=== PATIENT | male | born 1945 | race Caucasian/White ===

== ENCOUNTER 2018-06-18 06:58 | Day surgery (SDC) | payer OTHER, SELFPAY ==
[2018-06-18] MEDS: PROPARACAINE 0.5% OPHTH SOL 2 DROPS EYE-OP (07:37)
[2018-06-18] MEDS: CATARACT EYE COMPOUND (10 DROPS/SYRINGE) 3 DROPS EYE-OP (07:42)
[2018-06-18 07:43] VITALS: BP 123/76; PULSE 91; RESP 16; TEMP 36.6; O2SAT 97; BMI 29.4
--- NOTE | 2018-06-18 08:48 | P.OP.PRE_ITS ---
Pre-operative Note Interval Note Changes: No
--- NOTE | 2018-06-18 08:48 | P.OP_ITS ---
Operative Date/Time/Diagnoses Pre-op diagnosis: Cataract Left eye Post-op diagnosis: same Procedure & Clinicians Surgeon: Jeferson Barber Anesthesia Type: MAC +/- and Sedation Operative Notes Procedure in detail: Patient brought to the operating suite. Tetracaine drops placed in the left eye. Patient was prepped and draped in sterile manner. Wire lid speculum was placed in the eye. Betadine drops were placed on the eye. This was irrigated. Lidocaine jelly was placed on the eye. A paracentesis port was created with a side-port blade. 0.1 mL 1% preservative free lidocaine was injected into the anterior chamber. The anterior chamber was deepened with viscoelastic. 2.6 mm keratome was used to create a temporal clear corneal incision. Cystotome and Utrata forceps were used to create continuous tear capsulorrhexis. Balanced salt solution was used to hydro dissect the nucleus. The phacoemulsification handpiece was inserted and the nucleus was removed using the stop and chop technique. The irrigation aspiration handpiece was inserted and the remaining cortex was removed. Anterior chamber was deepened with viscoelastic. An Flores [id number] intraocular lens with a power of 19.0 was injected into the capsular bag. Irrigation aspiration handpiece was inserted and the remaining viscoelastic was removed. Incision was hydrated with balanced salt solution and found to be leak free with pressure with Weck- Pamela sponges. 0.1 mL Vigamox injected anterior chamber. 0.3 mL Kenalog 10 mg was injected subconjunctivally. Lid speculum was removed. The patient left the operating room in excellent condition. Complications: none Condition: stable Disposition: same day surgery
--- NOTE | 2018-06-18 08:48 | PM.PREOP ---
Pre-operative Note Interval Note Changes: No
--- NOTE | 2018-06-18 08:58 | SUR.OPER ---
Supine on eye stretcher, head on extension cradle secured with tape. Arms tucked at sides with blanket. Pillow under knees.
[2018-06-18] MEDS: MOXIFLOXACIN OPHTH DROPS 3 ML BOTTLE 2 DROPS INJ (09:03)
[2018-06-18] MEDS: PHENYLEPHRINE/LIDOCAINE VIAL (OR) 0.2 ML EYE-OP (09:03)
[2018-06-18] MEDS: TRIAMCINOLONE 50 MG/5 ML VIAL INJ (09:03)
[2018-06-18] MEDS: CHONDROIDTIN/SOD HYALURONATE 1.05 ML SYRINGE INTRAOCULA (09:04)
[2018-06-18] MEDS: LIDOCAINE JELLY 2% 5 ML 1 APPLIC TOP (09:05)
[2018-06-18] MEDS: BALANCED SALT IRRIG SOLN NO.2 500 ML, EPINEPHrine 1 MG IRR (09:06)
[2018-06-18] MEDS: TETRACAINE 0.5% OPHTH DROPS 15 ML 2 DROPS EYE-LEFT (09:06)
[2018-06-18 09:18] VITALS: BP 90/60; PULSE 74; RESP 15; TEMP 36.3; O2SAT 98
[2018-06-18 09:25] VITALS: BP 100/64; PULSE 61; RESP 18; O2SAT 98
--- NOTE | 2018-06-18 09:40 | SUR.PHASEII ---
pt awake and alert. answers questions appropriately. denies any complaints. Pt able to stand and dress without difficulty. at bedside.
== END 2018-06-18 09:36 ==
LOC: OR 07:00
PROVIDERS: PCP Family Medicine; Visit Provider Ophthalmology
DX: H25.12 Age-related nuclear cataract, left eye (principal); I10 Essential (primary) hypertension
CPT/HCPCS: J0171; J2250; J3010; J3301

== ENCOUNTER → 2019-01-06 15:50 | Outpatient (REF) | payer OTHER, SELFPAY ==
[2019-01-06 16:12] LABS: INR 2.4 (0.9-1.3); Prothrombin Time 27.8 SECONDS (10.1-12.7)
== END ==
LOC: LAB 15:50
PROVIDERS: PCP Family Medicine; Visit Provider Family Medicine
DX: I48.91 Unspecified atrial fibrillation (principal)
CPT/HCPCS: 85610

== ENCOUNTER → 2019-02-25 14:07 | Outpatient (ROUT) | payer OTHER, SELFPAY ==
[2019-02-25 14:18] LABS: INR 1.6 (0.9-1.3); Prothrombin Time 18.3 SECONDS (10.1-12.7)
== END ==
PROVIDERS: PCP Family Medicine; Visit Provider Family Medicine
DX: I48.91 Unspecified atrial fibrillation (principal)
CPT/HCPCS: 85610

== ENCOUNTER → 2019-03-11 12:08 | Outpatient (ROUT) | payer OTHER, SELFPAY ==
[2019-03-11 12:17] LABS: INR 1.8 (0.9-1.3); Prothrombin Time 20.9 SECONDS (10.1-12.7)
== END ==
PROVIDERS: PCP Family Medicine; Visit Provider Family Medicine
DX: I48.91 Unspecified atrial fibrillation (principal)
CPT/HCPCS: 85610

== ENCOUNTER 2019-03-18 11:51 | Day surgery (SDC) | payer OTHER, SELFPAY ==
[2019-03-18] VITALS (8 sets, daily range): BP systolic 92–121; BP diastolic 60–70; PULSE 75–88; RESP 15–20; TEMP 36.7–36.9; O2SAT 96–100; BMI 30.2
--- NOTE | 2019-03-18 | PATH_ITS ---
[facility] Accession Number: [id number] . 01 Material submitted: . PART A: rectum - RECTAL POLYP PART B: rectum - DISTAL RECTAL OCLON POLYPS . 01 Clinical history: . A: SMALL SESSILE . 02 Diagnosis: A. Rectum, Polyp: Hyperplastic polyp. . B. Distal Rectum, Polyps: Fragments of tubular adenoma and fragment of hyperplastic polyp. MRV/03/19/2019 . 02 Electronically signed: . Donavan Haro MD, PhD, Pathologist NPI- [id number] . 01 Gross description: . Part A: RECTAL POLYP: Received in formalin is 1 fragment(s) of merino, soft tissue measuring 0.2 x 0.2 x 0.2 cm which is entirely submitted and submitted entirely in 1 cassette(s) Part B: DISTAL RECTAL OCLON POLYPS: Received in formalin are multiple fragment(s) of merino, soft tissue measuring 0.1 x 0.1 x 0.1 cm to 0.6 x 0.5 x 0.4 cm which is entirely submitted and submitted entirely in 1 cassette(s) /DMC /DMC . 02 Pathologist provided ICD-10: D12.8, K62.1 . 02 CPT . 201786, [id number] Performed at: 01 [facility] [address], [place], [place] [id number] MD Shaun Gurrola MD Phone: [phone] Performed at: 02 [facility] [place] [address] [place], [place] [id number] MD Kate Beltran MD Phone: [phone]
[2019-03-18] MEDS: SODIUM CHLORIDE 0.9% 1,000 ML 200 ML IV (12:23)
--- NOTE | 2019-03-18 13:12 | PM.HP.1 ---
History of Present Illness Date Patient Seen: 03/18/19 Time Patient Seen: 13:00 Chief complaint: [id number] Narrative: 73-year-old man presents for screening colonoscopy. Fifteen years since last colonoscopy. On that no polyps identified. No family history of colon or rectal cancer. No family history of colon polyps. No family history of inflammatory bowel disease. Patient tolerated his prep well No abdominal symptoms Patient History Medical History (Updated 03/18/19 @ 12:18 by Jane Lui RN) Afib (Acute) Arthritis (Acute) Closed hip fracture requiring operative repair (Acute ~1988) Elevated cholesterol (Acute) Factor V deficiency, congenital (Acute) Femur fracture, left (Acute ~1969) History of DVT (deep vein thrombosis) (Acute) History of headache (Acute) History of pulmonary embolism (Acute) Hypertension (Acute) Surgical History (Updated 03/18/19 @ 12:17 by Jane Lui RN) Cataract extraction status of left eye (Acute ~06/18/18) H/O ankle fusion (Acute ~2001) H/O right knee surgery (Acute) History of colonoscopy (Acute) Social History household members: spouse Family & Social History Social History: household members spouse Meds Home Medications Medication Instructions Recorded Confirmed Type atorvastatin [Lipitor] 20 mg PO HS #0 11/27/17 03/18/19 History lisinopril-hydrochlorothiazide 1 tab PO QDAY #0 11/27/17 03/18/19 History warfarin [Coumadin] 7.5 mg PO QDAY #0 11/27/17 03/18/19 History metoprolol succinate 50 mg PO DAILY 06/18/18 03/18/19 History Allergies Allergy/AdvReac Type Severity Reaction Status Date / Time naproxen [NAPROXEN] Allergy Mild Swelling, Verified 03/18/19 12:12 Hives Review of Systems Constitutional Constitutional: Denies fever(s) Eyes Eyes: Denies bulging eyes ENT Ears, Nose, Mouth, and Throat: No lip swelling Cardiovascular Cardiovascular: Denies generalize swelling Respiratory Respiratory: Denies stridor Gastrointestinal Gastrointestinal: Denies coffee ground emesis Musculoskeletal Musculoskeletal: Denies loss of height Integumentary/Breasts Skin/Breast: Denies wounds Neurologic Neurologic: Denies abnormal speech and Denies confusion Psychiatric Psychiatric: Denies confusion Endocrine Endocrine: Denies deepening of the voice Hematologic/Lymphatic Hematologic/Lymphatic: Denies lymphadenopathy Allergic/Immunologic Allergic/Immunologic: Denies lip swelling Exam Const General: cooperative and healthy appearing Orientation: alert HENMT Head: normal to inspection Nose: nares normal Mouth: oral mucosae normal and lip normal Eyes Eyelids: eyelids normal Conjunctivae: conjunctivae normal Sclera: sclerae normal Neck Neck: supple and other (No thyromegally) Chest Chest: other (LCTAB , regular respiratory effort) Cardio Rhythm: regular rhythm Heart Sounds: S1 normal, S2 normal, no gallops, no murmurs and no rubs GI Other: Abdomen soft nontender nondistended Skin General: no rashes or lesions noted Neuro General: alert and awake Psych Appearance: grossly normal Affect: normal affect Assessment & Plan Assessment & Plan narrative: 73-year-old man overdue for his regular screening colonoscopy Not at elevated risk of colorectal cancer Was on warfarin anticoagulation -now. With INR 1.3 Plan for screening colonoscopy with possible polypectomy Risks of procedure including , perforation, hypoxia, missed lesion all discussed Patient rated proceed all questions answered
--- NOTE | 2019-03-18 13:15 | P.HP_ITS ---
History of Present Illness Date Patient Seen: 03/18/19 Time Patient Seen: 13:00 Chief complaint: [id number] Narrative: 73-year-old man presents for screening colonoscopy. Fifteen years since last colonoscopy. On that no polyps identified. No family history of colon or rectal cancer. No family history of colon polyps. No family history of inflammatory bowel disease. Patient tolerated his prep well No abdominal symptoms Patient History Medical History (Updated 03/18/19 @ 12:18 by Jane Lui RN) Afib (Acute) Arthritis (Acute) Closed hip fracture requiring operative repair (Acute ~1988) Elevated cholesterol (Acute) Factor V deficiency, congenital (Acute) Femur fracture, left (Acute ~1969) History of DVT (deep vein thrombosis) (Acute) History of headache (Acute) History of pulmonary embolism (Acute) Hypertension (Acute) Surgical History (Updated 03/18/19 @ 12:17 by Jane Lui RN) Cataract extraction status of left eye (Acute ~06/18/18) H/O ankle fusion (Acute ~2001) H/O right knee surgery (Acute) History of colonoscopy (Acute) Social History household members: spouse Family & Social History Social History: household members spouse Meds Home Medications Medication Instructions Recorded Confirmed Type atorvastatin [Lipitor] 20 mg PO HS #0 11/27/17 03/18/19 History lisinopril-hydrochlorothiazide 1 tab PO QDAY #0 11/27/17 03/18/19 History warfarin [Coumadin] 7.5 mg PO QDAY #0 11/27/17 03/18/19 History metoprolol succinate 50 mg PO DAILY 06/18/18 03/18/19 History Allergies Allergy/AdvReac Type Severity Reaction Status Date / Time naproxen [NAPROXEN] Allergy Mild Swelling, Verified 03/18/19 12:12 Hives Review of Systems Constitutional Constitutional: Denies fever(s) Eyes Eyes: Denies bulging eyes ENT Ears, Nose, Mouth, and Throat: No lip swelling Cardiovascular Cardiovascular: Denies generalize swelling Respiratory Respiratory: Denies stridor Gastrointestinal Gastrointestinal: Denies coffee ground emesis Musculoskeletal Musculoskeletal: Denies loss of height Integumentary/Breasts Skin/Breast: Denies wounds Neurologic Neurologic: Denies abnormal speech and Denies confusion Psychiatric Psychiatric: Denies confusion Endocrine Endocrine: Denies deepening of the voice Hematologic/Lymphatic Hematologic/Lymphatic: Denies lymphadenopathy Allergic/Immunologic Allergic/Immunologic: Denies lip swelling Exam Const General: cooperative and healthy appearing Orientation: alert HENNY Head: normal to inspection Nose: nares normal Mouth: oral mucosae normal and lip normal Eyes Eyelids: eyelids normal Conjunctivae: conjunctivae normal Sclera: sclerae normal Neck Neck: supple and other (No thyromegally) Chest Chest: other (LCTAB , regular respiratory effort) Cardio Rhythm: regular rhythm Heart Sounds: S1 normal, S2 normal, no gallops, no murmurs and no rubs GI Other: Abdomen soft nontender nondistended Skin General: no rashes or lesions noted Neuro General: alert and awake Psych Appearance: grossly normal Affect: normal affect Assessment & Plan Assessment & Plan narrative: 73-year-old man overdue for his regular screening c olonoscopy Not at elevated risk of colorectal cancer Was on warfarin anticoagulation -now. With INR 1.3 Plan for screening colonoscopy with possible polypectomy Risks of procedure including , perforation, hypoxia, missed lesion all discussed Patient rated proceed all questions answered
[2019-03-18] MEDS: MIDAZOLAM 5 MG/5 ML VIAL IV (13:43)
[2019-03-18] MEDS: fentaNYL 250 MCG/5 ML INJ IV (13:44)
--- NOTE | 2019-03-18 14:15 | PM.OP.ENDO ---
Operative Date/Time/Diagnoses Date of procedure: 03/18/19 Time of procedure: 14:15 Pre-op diagnosis: screening colonoscopy Post-op diagnosis: other Procedure & Clinicians Study performed: Complete screening colonoscopy Cold biopsy polypectomy x2 Hot snare polypectomy x1 Same procedure as scheduled: Yes Indications: 73-year-old man 15 years out from his most recent screening colonoscopy overdue for endoscopy. No family history of colon or rectal cancers, no personal family history of colon polyps Surgeon: Juan C Meyers Procedure Notes SCOAP/Timeout: Completed Procedure in detail: The patient was brought to the endoscopy suite, time-out was completed he was sedated over the course his procedure with a total of 5 mg of midazolam and 100 micro g of fentanyl. A digital rectal exam was performed which was without masses. 160 cm endoscope was introduced into the anus advanced through the folds of the rectum and negotiated through the twist and turns of the colon until the cecum was reached. Cecum was readily identified with a prominent ileocecal valve, gross foot as well as low appendiceal orifice. The colonoscopy scope was then slowly withdrawn visualizing the mucosal surfaces. Several areas of retained liquid were suctioned dry two view to visualize the mucosal wall well. While withdrawing the scope extensive diverticulosis involving the transverse left and sigmoid colon was identified. The sigmoid colon in particular had severe diverticula within diverticular changes. In addition a total of 3 rectal polyps were identified-there is a small sessile polyp near the rectosigmoid junction this was removed with a biopsy forcep. There were 2 distal rectal colon polyps within 4 cm of the dentate line. One was small sessile removed with biopsy forceps. The other was large and pedunculated which required a heart snare to rule. All were sent to pathology. The endoscope was retroflexed no additional lesions were identified Prep was adequate Patient tolerated the procedure well Scope withdrawal time: Twenty-three minutes Sedation minutes: 40 Findings: diverticulosis and polyp Specimen(s): other (1) PROXIMAL RECTAL POLPY 2) DISTAL RECTUM POLYPS X 2) Complications: none Impression: 1) Extensive diverticulosus of sigmoid, left and transverse colon 2) Rectal polyps as above 3) external hemorrhoids Recommendations: Colonscopy in 5 years Plan for aftercare: pacu and home Follow up: as needed Disposition: PACU
--- NOTE | 2019-03-18 14:39 | SUR.PHASEI ---
Post-procedure nurse note: pt was awake when entering the PACU, VSS, no pain reported, tolerating PO well, transfer to OPD
--- NOTE | 2019-03-18 15:07 | SUR.PHASEII ---
brought in, d/c instructins discussed checked with dr berg when to restart coumadin, he stated on the 20 of march, this relayed to pt and , both voiced an understanding.
== END 2019-03-18 15:10 | disposition home or self-care (01) ==
LOC: ENDO 11:55
PROVIDERS: PCP Family Medicine; Visit Provider Surgery
PROC: 0DJD8ZZ Inspection of Lower Intestinal Tract, Via Natural or Artificial Opening Endoscopic (ICD-10-PCS; CPT 45378; principal; 2019-03-18 13:00)
DX: Z12.11 Encounter for screening for malignant neoplasm of colon (principal); K57.30 Diverticulosis of large intestine without perforation or abscess without bleeding; K64.4 Residual hemorrhoidal skin tags; K62.1 Rectal polyp; D12.4 Benign neoplasm of descending colon; D12.3 Benign neoplasm of transverse colon; I10 Essential (primary) hypertension; I48.91 Unspecified atrial fibrillation
CPT/HCPCS: 45380; 99152; 99153; J2250; J3010

== ENCOUNTER → 2019-03-25 13:25 | Outpatient (ROUT) | payer OTHER, SELFPAY ==
[2019-03-25 13:43] LABS: INR 1.8 (0.9-1.3); Prothrombin Time 21.3 SECONDS (10.1-12.7)
== END ==
PROVIDERS: PCP Family Medicine; Visit Provider Family Medicine
DX: Z79.01 Long term (current) use of anticoagulants (principal)
CPT/HCPCS: 85610

== ENCOUNTER → 2019-04-08 14:04 | Outpatient (ROUT) | payer OTHER, SELFPAY ==
[2019-04-08 14:16] LABS: INR 2.3 (0.9-1.3); Prothrombin Time 26.5 SECONDS (10.1-12.7)
== END ==
PROVIDERS: PCP Family Medicine; Visit Provider Family Medicine
DX: Z79.01 Long term (current) use of anticoagulants (principal)
CPT/HCPCS: 85610

== ENCOUNTER → 2019-05-05 08:59 | Outpatient (CLI) | payer OTHER, SELFPAY ==
[2019-05-05 10:04] LABS: Add Manual Diff / Slide Review NO; Basophils Absolute Auto 0 /uL (0-100); Basophils Percent Auto 0.8 % (0-2); Eosinophils Absolute Auto 100 /uL (0-450); Eosinophils Percent Auto 1.4 % (2-4); Hematocrit 44.3 % (41-53); Hemoglobin 15.3 g/dL (13.5-17.5); Lymphocytes Absolute Auto 1400 /uL (1100-4500); Lymphocytes Percent Auto 23.5 % (25-40); Mean Corpuscular HGB Conc 34.6 % (30-36); Mean Corpuscular Hemoglobin 32.4 PG (26-34); Mean Corpuscular Volume 93.8 fL (80-100); Monocytes Absolute Auto 600 /uL (0-900); Monocytes Percent Auto 9.5 % (3-14); Neutrophils Absolute Auto 4000 /uL (1500-7000); Neutrophils Percent Auto 64.8 % (50-75); Platelet Count 165 X10^3/uL (150-400); Red Blood Cell Count 4.72 X10^6/uL (4.5-5.9); Red Cell Distribution Width 12.9 % (11.6-14.8); White Blood Cell Count 6.2 X10^3/uL (4.5-11.0)
[2019-05-05 10:21] LABS: Blood Urea Nitrogen 15 mg/dL (9-20); Calcium 9.6 mg/dL (8.4-10.2); Carbon Dioxide 28 mmol/L (22-32); Chloride 103 mmol/L (98-107); Cholesterol 144 mg/dL (140-199); Estimated Glomerular Filt Rate > 60.0 mL/min (>60); Glucose 126 mg/dL (80-110); HDL Cholesterol 53 mg/dL (40-60); HEMOLYSIS < 15 (0-50); LDL Cholesterol Calculated 63 mg/dL (<100); Potassium 4.2 mmol/L (3.4-5.1); Sodium 139 mmol/L (137-145); Triglycerides 142 mg/dL (35-150)
== END ==
PROVIDERS: PCP Family Medicine; Visit Provider Internal Medicine Cardiovascular Disease
DX: I10 Essential (primary) hypertension (principal)
CPT/HCPCS: 36415; 80048; 80061; 85025

== ENCOUNTER → 2019-07-02 07:58 | Outpatient (CLI) | payer OTHER, SELFPAY ==
[2019-07-02 08:28] LABS: INR 1.7 (0.9-1.3); Prothrombin Time 19.6 SECONDS (10.1-12.7)
== END ==
PROVIDERS: PCP Family Medicine; Visit Provider Family Medicine
DX: I48.91 Unspecified atrial fibrillation (principal)
CPT/HCPCS: 36415; 85610

== ENCOUNTER → 2019-08-26 14:24 | Outpatient (ROUT) | payer OTHER, SELFPAY ==
[2019-08-26 14:37] LABS: INR 2.2 (0.9-1.3); Prothrombin Time 26.3 SECONDS (10.1-12.7)
== END ==
PROVIDERS: PCP Family Medicine; Visit Provider Family Medicine
DX: Z79.01 Long term (current) use of anticoagulants (principal)
CPT/HCPCS: 85610

== ENCOUNTER → 2019-09-10 14:04 | Outpatient (ROUT) | payer OTHER, SELFPAY ==
[2019-09-10 14:16] LABS: INR 2.7 (0.9-1.3); Prothrombin Time 32.4 SECONDS (10.1-12.7)
== END ==
PROVIDERS: PCP Family Medicine; Visit Provider Family Medicine
DX: Z79.01 Long term (current) use of anticoagulants (principal)
CPT/HCPCS: 85610

== ENCOUNTER → 2019-10-02 10:37 | Outpatient (ROUT) | payer OTHER, SELFPAY ==
[2019-10-02 10:52] LABS: INR 2.1 (0.9-1.3); Prothrombin Time 24.8 SECONDS (10.1-12.7)
== END ==
PROVIDERS: PCP Family Medicine; Visit Provider Family Medicine
DX: Z79.01 Long term (current) use of anticoagulants (principal)
CPT/HCPCS: 85610

== ENCOUNTER → 2019-11-12 14:21 | Outpatient (ROUT) | payer OTHER, SELFPAY ==
[2019-11-12 14:39] LABS: INR 2.7 (0.9-1.3); Prothrombin Time 31.2 SECONDS (10.1-12.7)
== END ==
PROVIDERS: PCP Family Medicine; Visit Provider Family Medicine
DX: Z79.01 Long term (current) use of anticoagulants (principal)
CPT/HCPCS: 85610

== ENCOUNTER → 2019-11-28 08:43 | Outpatient (ROUT) | payer OTHER, SELFPAY ==
[2019-11-28 08:52] LABS: INR 2.2 (0.9-1.3); Prothrombin Time 24.9 SECONDS (10.1-12.7)
== END ==
PROVIDERS: PCP Family Medicine; Visit Provider Family Medicine
DX: Z79.01 Long term (current) use of anticoagulants (principal)
CPT/HCPCS: 85610

== ENCOUNTER → 2020-01-19 08:00 | Outpatient (ROUT) | payer OTHER, SELFPAY ==
[2020-01-19 08:17] LABS: INR 3.5 (0.9-1.3); Prothrombin Time 40.2 SECONDS (10.1-12.7)
== END ==
PROVIDERS: PCP Family Medicine; Visit Provider Family Medicine
DX: Z79.01 Long term (current) use of anticoagulants (principal)
CPT/HCPCS: 85610

== ENCOUNTER → 2020-02-03 12:26 | Outpatient (ROUT) | payer OTHER, SELFPAY ==
[2020-02-03 12:49] LABS: INR 2.2 (0.9-1.3); Prothrombin Time 25.5 SECONDS (10.1-12.7)
== END ==
PROVIDERS: PCP Family Medicine; Visit Provider Family Medicine
DX: Z79.01 Long term (current) use of anticoagulants (principal)
CPT/HCPCS: 85610

== ENCOUNTER → 2020-02-20 09:00 | Outpatient (ROUT) | payer OTHER, SELFPAY ==
[2020-02-20 09:22] LABS: INR 2.1 (0.9-1.3)
== END ==
PROVIDERS: PCP Family Medicine; Visit Provider Family Medicine
DX: Z79.01 Long term (current) use of anticoagulants (principal)
CPT/HCPCS: 85610

== ENCOUNTER → 2020-03-24 08:16 | Outpatient (ROUT) | payer OTHER, SELFPAY ==
[2020-03-24 08:25] LABS: INR 2.6 (0.9-1.3)
== END ==
PROVIDERS: PCP Family Medicine; Visit Provider Family Medicine
DX: I48.91 Unspecified atrial fibrillation (principal); Z79.01 Long term (current) use of anticoagulants
CPT/HCPCS: 85610

== ENCOUNTER → 2020-06-03 08:52 | Outpatient (ROUT) | payer OTHER, SELFPAY ==
[2020-06-03 09:01] LABS: INR 2.5 (0.9-1.3); Prothrombin Time 29.2 SECONDS (10.1-12.7)
== END ==
PROVIDERS: PCP Family Medicine; Visit Provider Family Medicine
DX: Z79.01 Long term (current) use of anticoagulants (principal)
CPT/HCPCS: 85610

== ENCOUNTER → 2020-07-09 08:13 | Outpatient (ROUT) | payer OTHER, SELFPAY ==
[2020-07-09 08:28] LABS: INR 2.4 (0.9-1.3); Prothrombin Time 27.8 SECONDS (10.1-12.7)
== END ==
PROVIDERS: PCP Family Medicine; Visit Provider Family Medicine
DX: Z79.01 Long term (current) use of anticoagulants (principal)
CPT/HCPCS: 85610

== ENCOUNTER → 2020-09-10 08:56 | Outpatient (ROUT) | payer OTHER, SELFPAY ==
[2020-09-10 09:04] LABS: INR 2.7 (0.9-1.3); Prothrombin Time 30.5 SECONDS (10.1-12.7)
== END ==
PROVIDERS: PCP Family Medicine; Visit Provider Family Medicine
DX: Z79.01 Long term (current) use of anticoagulants (principal)
CPT/HCPCS: 85610

== ENCOUNTER → 2020-10-29 14:31 | Outpatient (CLI) | payer MEDICARE, SELFPAY ==
[2020-10-29] MEDS: COVID-19 VACC #1, MRNA(MOD) 100 MCG/0.5 ML VIAL IM (14:37)
== END ==
PROVIDERS: Visit Provider Internal Medicine
DX: Z23 Encounter for immunization (principal)
CPT/HCPCS: 0011A; 91301

== ENCOUNTER → 2020-11-05 13:42 | Outpatient (CLI) | payer OTHER, SELFPAY ==
--- NOTE | 2020-11-05 | DI.RAD.S_ITS ---
PROCEDURE: XR LUMBAR SPINE 2-3V INDICATIONS: Lumbago with sciatica, left side TECHNIQUE: 3 views of the lumbar spine were acquired. COMPARISON: None. FINDINGS: Bones: 5 [id number] vertebrae are present. There is grade 1 retrolisthesis of L3 on L4, L5 on S1, anterolisthesis of L4 on L5. Mild leftward scoliotic curvature is present. No vertebral body compression fractures. No suspicious bony lesions. Multilevel moderate to severe disc space narrowing is present throughout the lumbar spine. Severe foraminal narrowing is noted at L4-5 and L5-S1, moderate L3-4. Soft tissues: Overlying bowel gas pattern is normal. No suspicious soft tissue calcifications. IMPRESSION: Multilevel degenerative changes most severe at L5-S1 as above. Dictated by: Amy Sanford M.D. on 11/05/2020 at 15:31 Approved by: Amy Sanford M.D. on 11/05/2020 at 15:32
== END ==
PROVIDERS: PCP Student in an Organized Health Care Education/Training Program; Referring Provider Student in an Organized Health Care Education/Training Program; Visit Provider Student in an Organized Health Care Education/Training Program
DX: M54.42 Lumbago with sciatica, left side (principal); M47.816 Spondylosis without myelopathy or radiculopathy, lumbar region; M47.817 Spondylosis without myelopathy or radiculopathy, lumbosacral region
CPT/HCPCS: 72100

== ENCOUNTER → 2020-11-19 09:00 | Outpatient (ROUT) | payer OTHER, SELFPAY ==
[2020-11-19 09:12] LABS: INR 2.3 (0.9-1.3); Prothrombin Time 25.8 SECONDS (10.1-12.7)
== END ==
PROVIDERS: PCP Student in an Organized Health Care Education/Training Program; Visit Provider Nurse Practitioner Family
DX: Z79.01 Long term (current) use of anticoagulants (principal)
CPT/HCPCS: 85610

== ENCOUNTER → 2020-11-25 14:32 | Outpatient (CLI) | payer MEDICARE, SELFPAY ==
[2020-11-25] MEDS: COVID-19 VACC #2, MRNA(MOD) 100 MCG/0.5 ML VIAL IM (14:37)
== END ==
PROVIDERS: PCP Student in an Organized Health Care Education/Training Program; Visit Provider Internal Medicine
DX: Z23 Encounter for immunization (principal)
CPT/HCPCS: 0012A; 91301

== ENCOUNTER → 2021-01-28 08:13 | Outpatient (ROUT) | payer OTHER, SELFPAY ==
[2021-01-28 08:43] LABS: INR 2.6 (0.9-1.3); Prothrombin Time 30.1 SECONDS (10.1-12.7)
== END ==
PROVIDERS: PCP Student in an Organized Health Care Education/Training Program; Visit Provider Family Medicine
DX: Z79.01 Long term (current) use of anticoagulants (principal)
CPT/HCPCS: 85610

== ENCOUNTER → 2021-03-15 08:28 | Outpatient (ROUT) | payer OTHER, SELFPAY ==
[2021-03-15 08:48] LABS: INR 2.7 (0.9-1.3)
== END ==
PROVIDERS: PCP Student in an Organized Health Care Education/Training Program; Visit Provider Family Medicine
DX: Z79.01 Long term (current) use of anticoagulants (principal)
CPT/HCPCS: 85610

== ENCOUNTER → 2021-03-16 14:43 | Outpatient (CLI) | payer OTHER, SELFPAY ==
--- NOTE | 2021-03-16 14:47 | DI.RAD.S_ITS ---
PROCEDURE: XR HIP W PEL IF DONE LT 2V INDICATIONS: JOINT PAIN TECHNIQUE: AP pelvis with lateral view(s) of the left hip(s). COMPARISON: None. FINDINGS: Bones: No fractures or dislocations. Pelvic ring appears intact. No suspicious bony lesions. Moderate to severe left and moderate right hip degenerative narrowing, with periarticular osteophytes. No erosions. Soft tissues: The visualized bowel gas pattern is normal. No suspicious soft tissue calcifications. IMPRESSION: Moderate to severe bilateral hip arthritis as above. Dictated by: Amy Sanford M.D. on 03/16/2021 at 15:49 Approved by: Amy Sanford M.D. on 03/16/2021 at 15:50
--- NOTE | 2021-03-16 14:47 | DI.RAD.S_ITS ---
PROCEDURE: XR ANKLE RT MIN 3V INDICATIONS: JOINT PAIN TECHNIQUE: 3 views of the ankle were acquired. COMPARISON: None. FINDINGS: Bones: No fractures or dislocations. Ankle mortise is normally aligned. No suspicious bony lesions. Severe degenerative arthritis with severe joint space loss and anterior osteophyte. Soft tissues: No tibiotalar joint effusion. Achilles tendon appears normal. IMPRESSION: Severe degenerative arthritis of the right ankle. Dictated by: Austin Franco M.D. on 03/17/2021 at 8:42 Approved by: Austin Franco M.D. on 03/17/2021 at 8:43
--- NOTE | 2021-03-16 14:47 | DI.RAD.S_ITS ---
PROCEDURE: XR KNEE RT 3V INDICATIONS: JOINT PAIN TECHNIQUE: 3 views of the knee were acquired. COMPARISON: [facility], , KNEE 3V RIGHT, 12/11/2012, 10:09. FINDINGS: Bones: No fractures or dislocations. No suspicious bony lesions. Severe degenerative arthritis. Tricompartment .is. Patellofemoral joint space obliteration. Medial and lateral joint space loss. Soft tissues: Small joint effusion. No suspicious soft tissue calcifications. IMPRESSION: Severe degenerative arthritis of the right knee. Dictated by: Austin Franco M.D. on 03/17/2021 at 8:39 Approved by: Austin Franco M.D. on 03/17/2021 at 8:41
== END ==
PROVIDERS: PCP Student in an Organized Health Care Education/Training Program; Referring Provider Family Medicine; Visit Provider Family Medicine
DX: M25.50 Pain in unspecified joint (principal); M16.0 Bilateral primary osteoarthritis of hip; M17.11 Unilateral primary osteoarthritis, right knee; M19.071 Primary osteoarthritis, right ankle and foot
CPT/HCPCS: 73502; 73562; 73610

== ENCOUNTER → 2021-04-11 08:48 | Outpatient (ROUT) | payer OTHER, SELFPAY ==
[2021-04-11 08:57] LABS: INR 2.2 (0.9-1.3); Prothrombin Time 24.8 SECONDS (10.1-12.7)
== END ==
PROVIDERS: PCP Student in an Organized Health Care Education/Training Program; Visit Provider Family Medicine
DX: I48.91 Unspecified atrial fibrillation (principal); Z86.72 Personal history of thrombophlebitis; D68.51 Activated protein C resistance
CPT/HCPCS: 85610

== ENCOUNTER → 2021-06-08 08:43 | Outpatient (ROUT) | payer OTHER, SELFPAY ==
[2021-06-08 09:00] LABS: INR 2.3 (0.9-1.3)
== END ==
PROVIDERS: PCP Student in an Organized Health Care Education/Training Program; Visit Provider Family Medicine
DX: I48.91 Unspecified atrial fibrillation (principal); Z86.72 Personal history of thrombophlebitis; D68.51 Activated protein C resistance
CPT/HCPCS: 85610

== ENCOUNTER → 2021-08-10 14:52 | Outpatient (ROUT) | payer OTHER, SELFPAY ==
[2021-08-10 15:41] LABS: INR 2.8 (0.9-1.3); Prothrombin Time 33.1 SECONDS (10.1-12.7)
== END ==
PROVIDERS: PCP Student in an Organized Health Care Education/Training Program; Visit Provider Family Medicine
DX: I48.91 Unspecified atrial fibrillation (principal); Z86.72 Personal history of thrombophlebitis; D68.51 Activated protein C resistance
CPT/HCPCS: 85610

== ENCOUNTER → 2021-08-12 12:24 | Outpatient (CLI) | payer OTHER, SELFPAY ==
--- NOTE | 2021-08-12 | DI.CT.S_ITS ---
PROCEDURE: CT LE RT WO CON INDICATIONS: Pain in right ankle and joints of right foot TECHNIQUE: Noncontrast 1-1.5 mm axial sections acquired from above the tibiotalar joint to the bottom of the calcaneus, with coronal and sagittal reformats. COMPARISON: [facility], [place], XR ANKLE 3 VIEWS WEIGHT BEARING RIGHT, 08/03/2021, 13:02. FINDINGS: Image quality: Excellent. Bones: Moderate to severe tibiotalar joint osteoarthritic changes are seen with extensive joint space narrowing, and subchondral sclerosis. Numerous subcortical cyst formation involving lateral weight-bearing portion of talar dome and adjacent lateral portion of tibial plafond are seen concerning for osteochondral injuries. Slight medial tilt of the talar dome in relation to distal tibial plafond is also seen. Moderate osteoarthritic changes involving articulation between lateral malleolus and lateral periphery of inferior talus are seen with joint space narrowing, subchondral sclerosis and subcortical cystic changes. Moderate subtalar joint osteoarthritic changes also seen. Mild osteoarthritic changes are noted throughout midfoot and forefoot joints. No suspicious intraosseous lesion. No acute fracture or dislocation. Soft tissues: Plantar fascia is intact. Extensor, flexor, and peroneus tendons are intact. Achilles tendon is intact. There is small amount of tibiotalar joint fluid, no gross intra-articular loose body. No abnormal soft tissue calcifications. IMPRESSION: 1. 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 2. Mild to moderate osteoarthritic changes throughout rest of right ankle and foot. No fracture or dislocation. No suspicious bony lesion. Slight lateral tilt of talus in relation to distal tibia. 3. No full-thickness ankle tendon rupture. No abnormal soft tissue calcifications. Dictated by: Elvis Glynn M.D. on 08/12/2021 at 15:15 Approved by: Elvis Glynn M.D. on 08/12/2021 at 15:27
== END ==
PROVIDERS: PCP Family Medicine; Referring Provider Orthopaedic Surgery Foot and Ankle Surgery; Visit Provider Orthopaedic Surgery Foot and Ankle Surgery
DX: M25.571 Pain in right ankle and joints of right foot (principal); M19.071 Primary osteoarthritis, right ankle and foot
CPT/HCPCS: 73700

== ENCOUNTER → 2021-09-28 11:19 | Outpatient (ROUT) | payer OTHER, SELFPAY ==
[2021-09-28 12:21] LABS: Prothrombin Time 34.7 SECONDS (10.1-12.7)
== END ==
PROVIDERS: PCP Family Medicine; Visit Provider Family Medicine
DX: I48.91 Unspecified atrial fibrillation (principal); Z86.72 Personal history of thrombophlebitis; D68.51 Activated protein C resistance
CPT/HCPCS: 85610

== ENCOUNTER → 2021-10-10 15:05 | Outpatient (CLI) | payer OTHER, SELFPAY ==
[2021-10-10 17:31] LABS: COVID19 -Nasal RAPID Negative (Negative)
== END ==
PROVIDERS: PCP Family Medicine; Referring Provider Orthopaedic Surgery Foot and Ankle Surgery; Visit Provider Orthopaedic Surgery Foot and Ankle Surgery
DX: Z20.822 Contact with and (suspected) exposure to COVID-19 (principal)
CPT/HCPCS: 87635; C9803

== ENCOUNTER → 2021-10-19 09:42 | Outpatient (ROUT) | payer OTHER, SELFPAY ==
[2021-10-19 09:52] LABS: INR 1.7 (0.9-1.3); Prothrombin Time 18.8 SECONDS (10.1-12.7)
== END ==
PROVIDERS: PCP Family Medicine; Visit Provider Family Medicine
DX: I48.91 Unspecified atrial fibrillation (principal); Z86.72 Personal history of thrombophlebitis; D68.51 Activated protein C resistance
CPT/HCPCS: 85610

== ENCOUNTER → 2021-11-02 08:14 | Outpatient (ROUT) | payer OTHER, SELFPAY ==
[2021-11-02 08:23] LABS: INR 1.8 (0.9-1.3); Prothrombin Time 19.9 SECONDS (10.1-12.7)
== END ==
PROVIDERS: PCP Family Medicine; Visit Provider Family Medicine
DX: I48.91 Unspecified atrial fibrillation (principal); Z86.72 Personal history of thrombophlebitis; D68.51 Activated protein C resistance
CPT/HCPCS: 85610

== ENCOUNTER → 2021-11-16 08:25 | Outpatient (ROUT) | payer OTHER, SELFPAY ==
[2021-11-16 08:44] LABS: INR 2.8 (0.9-1.3); Prothrombin Time 32.1 SECONDS (10.1-12.7)
== END ==
PROVIDERS: PCP Family Medicine; Visit Provider Internal Medicine Gastroenterology
DX: I48.91 Unspecified atrial fibrillation (principal); Z86.72 Personal history of thrombophlebitis; D68.51 Activated protein C resistance
CPT/HCPCS: 85610

== ENCOUNTER → 2021-11-22 11:49 | Outpatient (CLI) | payer OTHER, SELFPAY ==
[2021-11-22 13:20] LABS: COVID19 -Nasal RAPID Negative (Negative)
== END ==
PROVIDERS: PCP Family Medicine; Visit Provider Family Medicine Sleep Medicine
DX: Z20.822 Contact with and (suspected) exposure to COVID-19 (principal)
CPT/HCPCS: 87635; C9803

== ENCOUNTER 2021-11-24 06:12 | Day surgery (SDC) | payer OTHER, SELFPAY ==
[2021-10-06 09:42] VITALS: BMI 32.0
[2021-11-24] VITALS (12 sets, daily range): BP systolic 96–142; BP diastolic 54–95; PULSE 63–94; RESP 8–18; TEMP 35.9–36.8; O2SAT 96–98; BMI 32.0
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
[2021-11-24] MEDS: LACTATED RINGERS 1,000 ML 42 ML IV ×2 (07:37→11:05)
--- NOTE | 2021-11-24 08:13 | P.OP_ITS ---
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 He has failed conservative treatment. He has a contralateral ankle fusion. He has been indicated for right total ankle arthroplasty. The risks and benefits of the procedure have been discussed with the patient given the opportunity to ask questions. The risks of surgery include but are not limited to infection, fracture, implant failure, malunion, nonunion, persistence of pain, wound healing problems, damage to nerves and blood vessels, posttraumatic arthritis, amputation, DVT, PE, cardiopulmonary complications and . The patient expressed a thorough understanding of the risks and benefits of surgery and has elected to proceed. Consent was signed. Surgeon: Bambi Ron Software Release Engineer: Dianna Mueller Anesthesia Type: General, Peripheral nerve block and Local Operative Notes Findings: End-stage right tibiotalar arthritis Range of motion demonstrated at least 10-15 degrees of dorsiflexion after implant therefore no tendo-Achilles lengthening was required. Closure Type: primary Specimen(s): none sent Prosthetic devices, grafts, tissues, transplants, or devices: Integra Hany talaris tibial tray XL size 3 right Talar dome flat cut sized to right Poly size 2 right 8 mm Estimated Blood Loss (mL): 50 Blood products transfused: none Tourniquet time (min): 127 Procedure in detail: Patient was seen in the preoperative area the site of surgery marked informed consent confirmed. He was brought back to the operating room by the anesthesia team positioned supine on operative table. The right lower extremity was prepped and draped in standard sterile fashion. All bony problems well padded. A well-padded thigh tourniquet was placed. An SCD was placed on the contralateral lower extremity. The right lower extremity was prepped and draped. Formal time-out procedure was performed confirming the patient's side and site of surgery administration of appropriate preoperative antibiotics. All were in agreement. Attention was turned to the right lower extremity Esmarch bandage was used for exsanguination tourniquet elevated to 250 mm Hg and stayed there for 127 minutes. Standard anterior approach to the ankle was drawn on the leg approximately 10 cm and taken about 1 cm lateral to the tibial crest and extended longitudinal bisecting the tibiotalar joint extending to the talonavicular joint. This was taken down through the skin and subcutaneous tissues and care was taken to isolate and protect the superficial peroneal nerve branch. Next the extensor retinaculum was opened and tagged with 0 Vicryl for later repair. The EHL tendon sheath was opened in the EHL and neurovascular bundle were retracted laterally while the tibialis anterior was kept in its sheath and retracted medially. This brought us down directly on the anterior tibia. Dissection was taken all the way to the talonavicular joint to expose the talus. The capsule was divided and retracted. The joint demonstrated end- stage tibiotalar arthritis with large distal tibial spurs and a talar spur. Bovie cautery and elevators were used to remove the periosteum along the anterior tibia expose the joint. The talus was mobilized. There were no significant joint contractures. There was some asymmetric wear of the lateral tibial plafond. The osteotome was used to remove the anterior tibia to the level of the plafond dome. The guidepins were placed in the anterior tibial tubercle and the jig aligned. This was lined in the center of the tibial shaft and then attention was turned distally bringing the guide down to the osteotome. A center position in the tibial metaphysis distally was determined and the medial tibial pin was drilled in place. The guide was then adjusted to be parallel to the tibial shaft and the appropriate height. A 9 mm resection was selected. Then the rotation in between the 2nd and 3rd toes was selected followed by the medial-lateral translation and sizing. Initially a size 2 tibial tray was selected this was later sized up for a 3 XL to better fit the anterior-posterior dimension of the tibia. The pins were placed in the tibia and drilled. The distal tibia cut was is completed with the saw. The jig for the flat top talar cut was then aligned and pinned in place with care to make sure this was in neutral position. Talus was then drilled. The talar resection was removed followed by the tibial resection creating a good balanced resection block. The trials for the 2 tibia 2 talus an 8 mm meter poly were placed this was a little short on the tibia side and so we are sized up to a 3 tibial tray which fit excellently in the long position. Next the tibia and talus were prepared with the drilling and keel in the standard technique. Following this the gutters were resected with the recip rocal saw. Was irrigated. Implants were impacted in the standard fashion. The final implants were the 3 XL tibia the 8 mm poly and the 2 flat top talus. These provided excellent alignment and excursion without laxity. Dorsiflexion was at least 10? with plantar flexion approximately 35-40 degrees. This was stable to varus and valgus stress testing. Final x-rays were taken. Tourniquet was released hemostasis was achieved. Some bone graft was placed into the anterior tibia with the keel was. The capsule was closed with 0 Vicryl subcutaneous with 2-0 PDS and then the extensor retinaculum. 2-0 PDS was used to close the retinaculum providing an excellent tight closure. 4-0 Monocryl was placed subcutaneous followed by 3-0 nylon. I did put some additional Dermabond on for a complete watertight seal. 3-0 nylon was used to close the foot incision. 10 cc of 0.25% Marcaine was used as a local anesthetic after the incision was closed. Well-padded dressing was placed with Xeroform, 4 x 4 gauze, Webril, bulky Dinero cotton, posterior and U splint was applied. Drapes removed the patient was woken from anesthesia and taken to PACU in good condition. All counts were correct. There no immediate complications from this procedure Complications: none Post-operative Condition: stable Disposition: PACU Plan for aftercare: Outpatient was bed. Will go home tomorrow. Will have 1st dose of his therapeutic Lovenox tomorrow a.m. has prescriptions at home for continued Lovenox bridge in will restart his Coumadin in the evening on postop day 1. Will remain toe-touch weight-bearing. Elevate above the heart level as much as possible. Follow-up in clinic as scheduled.
--- NOTE | 2021-11-24 08:13 | SUR.PREOP ---
[after saftey pause 0750, and vital signs] . 08Monitoring initiated and maintained throughout procedure. Oxygen and medications given per anesthesiologist instructions. Patient remained stable throughout procedure, no adverse reactions noted. Block end time 0810[].
[2021-11-24] MEDS: CEFAZOLIN 2 GM/20 ML SYRINGE IV ×2 (08:18→15:06)
[2021-11-24] MEDS: TRANEXAMIC ACID 1,000 MG in SODIUM CHLORIDE 0.9% 100 ML 200 ML IV (08:22)
[2021-11-24] MEDS: BUPIVACAINE 0.25% (PF) 30 ML, EPINEPHrine 0.15 MG INJ (09:04)
--- NOTE | 2021-11-24 09:07 | SUR.OPER ---
Supine on padded OR bed, head on pillow, arms secured on padded arm boards at <90 degrees abduction, legs uncrossed, safety belt at lower torso, tape over blanket over left lower leg. Gel pad under left heel. [place] bump under right hip, folded blankets under right lower leg. Right leg in control of the Surgeon.
--- NOTE | 2021-11-24 11:37 | DI.RAD.S_ITS ---
PROCEDURE: XR ANKLE RT MIN 3V INDICATIONS: RIGHT TOTAL ANKLE TECHNIQUE: 6 intraoperative spot fluoroscopic images of the ankle were obtained. COMPARISON: [facility], JOSE, XR ANKLE RT MIN 3V, 03/16/2021, 14:48. FINDINGS: Intraoperative spot fluoroscopic images demonstrate placement of a tibiotalar prosthesis with hardware components in expected positions. IMPRESSION: Status post tibiotalar arthroplasty with expected postoperative appearance. Dictated by: Don Patel M.D. on 11/24/2021 at 11:41 Approved by: Don Patel M.D. on 11/24/2021 at 11:45
--- NOTE | 2021-11-24 12:15 | SUR.PHASEI ---
Stable pacu stay, no pain, discomfort, tolerated ice, report called to Vince Milner transported up to room on . Pt left in stable condition.
[2021-11-24] MEDS: LACTATED RINGERS 1,000 ML 100 ML IV (14:24)
[2021-11-24] MEDS: ACETAMINOPHEN 325 MG TABLET 975 MG PO ×2 (14:54→20:26)
[2021-11-24] MEDS: GABAPENTIN 300 MG CAPSULE PO ×2 (14:54→20:27)
[2021-11-24] MEDS: ATORVASTATIN 20 MG TABLET PO (20:26)
[2021-11-24] MEDS: DOCUSATE 100 MG CAPSULE PO (20:27)
[2021-11-24] MEDS: ENOXAPARIN 100 MG/ML SYRINGE SUBCUT ×2 (20:35→21:33)
[2021-11-25 00:58] VITALS: BP 115/60; PULSE 68; RESP 18; TEMP 36.6; O2SAT 94
[2021-11-25] MEDS: CEFAZOLIN 2 GM/20 ML SYRINGE IV (01:07)
[2021-11-25] MEDS: OXYCODONE IR 10 MG TABLET PO ×3 (02:57→11:45)
[2021-11-25] MEDS: HYDROMORPHONE 0.5 MG INJ IV ×2 (02:58→04:47)
[2021-11-25 06:13] VITALS: BP 126/66; PULSE 72; RESP 17; TEMP 36.3; O2SAT 92
--- NOTE | 2021-11-25 06:53 | PC.NURSE ---
a/o voices needs. s/p right ankle repair. soft cast w/ graciela wrap, elevated on pillow. ice packs on cast, plus repositioned twice thru the NOC w/ good effect as he c/o hip discomfort when laying in the same position too long. LR thru the night, then SL after good po intake. using urinal at bedside. PRN dilauded and oxycodone effective for BTP - reported feeling the nerve block wear off around 0400. + CSM checks. call light w/in reach.
[2021-11-25 08:25] VITALS: BP 125/77; PULSE 88; RESP 18; TEMP 36.7; O2SAT 93
[2021-11-25 08:59] VITALS: BP 127/77; PULSE 85
[2021-11-25] MEDS: METOPROLOL ER 50 MG TABLET PO (08:59)
[2021-11-25] MEDS: hydroCHLOROthiazide 25 MG TABLET 12.5 MG PO (08:59)
[2021-11-25 09:01] VITALS: BP 127/77; PULSE 85
[2021-11-25] MEDS: lisinopriL 10 MG TABLET PO (09:01)
[2021-11-25] MEDS: ACETAMINOPHEN 325 MG TABLET 975 MG PO (09:01)
[2021-11-25] MEDS: GABAPENTIN 300 MG CAPSULE PO (09:01)
[2021-11-25] MEDS: DOCUSATE 100 MG CAPSULE PO (09:01)
[2021-11-25 09:34] VITALS: BP 136/69; PULSE 94
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
== END 2021-11-25 13:24 | disposition home or self-care (01) ==
LOC: OR 06:14 → AC 06:15
PROVIDERS: PCP Family Medicine; Referring Provider Orthopaedic Surgery Foot and Ankle Surgery; Visit Provider Orthopaedic Surgery Foot and Ankle Surgery
PROC: (CPT 27702; principal; 2021-11-24 07:45)
DX: M19.171 Post-traumatic osteoarthritis, right ankle and foot (principal); D68.51 Activated protein C resistance; Z79.01 Long term (current) use of anticoagulants; I48.91 Unspecified atrial fibrillation; Z86.718 Personal history of other venous thrombosis and embolism; I10 Essential (primary) hypertension
CPT/HCPCS: 27702; 73610; 76000; 85610; 97161; 97530; C1776; J0171; J0690; J1100; J1170; J1650; J2250; J2405; J2704; J3010

== ENCOUNTER 2021-11-26 14:09 | Observation (INO) | payer OTHER, SELFPAY ==
[2021-11-24 16:11] VITALS: BMI 32.0
[2021-11-26] VITALS (14 sets, daily range): BP systolic 122–152; BP diastolic 65–98; PULSE 84–118; RESP 18–28; TEMP 36.6–37.1; O2SAT 91–94; BMI 29.5; BMI 30.6
--- NOTE | 2021-11-26 14:20 | DI.RAD.S_ITS ---
PROCEDURE: XR CHEST 2V INDICATIONS: shortness of breath TECHNIQUE: 2 views of the chest were acquired. COMPARISON: None. FINDINGS: Surgical changes and devices: None. Lungs and pleura: Question pneumonia or mass seen on the lateral view, likely in the left lower lobe. No pleural effusions or pneumothorax. Mediastinum: Mediastinal contours are normal. Heart size is normal. Bones and chest wall: No suspicious bony abnormalities. Soft tissues appear unremarkable. IMPRESSION: Question pneumonia or mass seen in the lateral view, likely in the left lower lobe. Comment: Recommend CT chest. Dictated by: Austin Franco M.D. on 11/26/2021 at 14:12 Approved by: Austin Franco M.D. on 11/26/2021 at 14:13
[2021-11-26 14:45] LABS: COVID19 -Nasal RAPID Negative (Negative)
[2021-11-26 15:07] LABS: Add Manual Diff / Slide Review NO; Basophils Absolute Auto 100 /uL (0-100); Basophils Percent Auto 0.7 % (0-2); Eosinophils Absolute Auto 0 /uL (0-450); Hematocrit 41.9 % (41-53); Hemoglobin 14.3 g/dL (13.5-17.5); Lymphocytes Absolute Auto 800 /uL (1100-4500); Lymphocytes Percent Auto 7.1 % (25-40); Mean Corpuscular HGB Conc 34.1 % (30-36); Mean Corpuscular Hemoglobin 31.8 PG (26-34); Mean Corpuscular Volume 93.4 fL (80-100); Monocytes Absolute Auto 900 /uL (0-900); Monocytes Percent Auto 7.5 % (3-14); Neutrophils Absolute Auto 10000 /uL (1500-7000); Neutrophils Percent Auto 84.7 % (50-75); Platelet Count 128 X10^3/uL (150-400); Red Blood Cell Count 4.49 X10^6/uL (4.5-5.9); Red Cell Distribution Width 12.9 % (11.6-14.8); White Blood Cell Count 11.9 X10^3/uL (4.5-11.0)
[2021-11-26 15:11] LABS: INR 1.3 (0.9-1.3)
[2021-11-26 15:16] LABS: Lactate (Lactic Acid) 1.3 mmol/L (0.7-2.1)
[2021-11-26 15:17] LABS: Alanine Aminotransferase 65 IU/L (<50); Albumin 4.1 g/dL (3.5-5.0); Albumin Globulin Ratio 1.2 (1.0-2.8); Alkaline Phosphatase 75 U/L (38-126); Aspartate Aminotransferase 64 IU/L (17-59); Bilirubin Total 2.2 mg/dL (0.2-1.3); Blood Urea Nitrogen 12 mg/dL (9-20); Carbon Dioxide 29 mmol/L (22-32); Chloride 99 mmol/L (98-107); Creatine Kinase 269 U/L (55-170); Estimated Glomerular Filt Rate > 60.0 mL/min (>60); Globulin 3.4 g/dL (1.7-4.1); Glucose 169 mg/dL (80-110); HEMOLYSIS < 15 (0-50); Potassium 3.9 mmol/L (3.4-5.1); Sodium 134 mmol/L (137-145); Total Protein 7.5 g/dL (6.3-8.2)
[2021-11-26 15:25] LABS: NT-proBNP (BNP-Adult 18+) 6190 pg/mL (<450)
[2021-11-26 15:29] LABS: Troponin I 0.111 ng/mL (0.01-0.034)
[2021-11-26 15:33] LABS: CKMB % Relative Index 0.9 % (1.5-5.0); Creatine Kinase MB 2.37 ng/mL (<2.37)
--- NOTE | 2021-11-26 16:06 | DI.CT.S_ITS ---
PROCEDURE: CT ANGIO CHEST PE PROTOCOL INDICATIONS: SOB, recent surgery TECHNIQUE: After the administration of intravenous contrast, 2 mm thick sections acquired from the pulmonary apices to the posterior costophrenic angles. 3-dimensional maximum intensity projection (MIP) coronal and sagittal reformats were then acquired through the thorax. For radiation dose reduction, the following was used: automated exposure control, adjustment of mA and/or kV according to patient size. COMPARISON: None. FINDINGS: Image quality: Excellent. Pulmonary arteries: Pulmonary arteries are normal in size, and demonstrate no intraluminal filling defects to suggest central pulmonary embolism. Lungs and pleura: Posterior dependent basilar consolidation bilaterally. Consider bilateral aspiration pneumonia. Minimal bilateral pleural effusions. and peripheral airways are patent. Mediastinum: Heart size is normal, without pericardial effusion. No mediastinal or hilar adenopathy. Thoracic aorta is normal in caliber and enhancement. Esophagus is normal in caliber, with small hiatal hernia. Bones and chest wall: No suspicious bony lesions. Multiple old compression fractures. Ribs and thoracic spine appear intact throughout. Thyroid gland is grossly unremarkable as imaged. No axillary or supraclavicular adenopathy. Abdomen: Visualized upper abdominal solid organs appear normal in the early arterial phase of enhancement. IMPRESSION: 1. No evidence acute pulmonary emboli. 2. Bibasilar pneumonia. Consider possible aspiration. 3. Small associated bilateral pleural effusions. Dictated by: Austin Franco M.D. on 11/26/2021 at 16:09 Approved by: Austin Franco M.D. on 11/26/2021 at 16:11
[2021-11-26 16:53] LABS: Procalcitonin 0.21 ng/mL (<0.5)
[2021-11-26] MEDS: ASPIRIN 81 MG CHEW TAB 324 MG PO (17:02)
[2021-11-26 17:24] LABS: Lactate (Lactic Acid) 1.4 mmol/L (0.7-2.1)
--- NOTE | 2021-11-26 17:48 | ED.SOB ---
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 (41-53) % MCV (80-100) fL MCH (26-34) PG MCHC (30-36) % RDW (11.6-14.8) % Plt Count (150-400) X10^3/uL Neut % (Auto) (50-75) % Lymph % (Auto) (25-40) % [place] % (Auto) (3-14) % Eos % (Auto) (2-4) % Baso % (Auto) (0-2) % Neut # (Auto) (5969-1148) /uL Lymph # (Auto) (5795-0407) /uL [place] # (Auto) (0-900) /uL Eos # (Auto) (0-450) /uL Baso # (Auto) (0-100) /uL PT (10.1-12.7) SECONDS INR (0.9-1.3) Sodium (137-145) mmol/L Potassium (3.4-5.1) mmol/L Chloride (98-107) mmol/L Carbon Dioxide (22-32) mmol/L BUN (9-20) mg/dL Creatinine (0.66-1.25) mg/dL Estimated GFR (>60) mL/min BUN/Creatinine Ratio (6-22) Glucose (80-110) mg/dL Lactate 1.4 (0.7-2.1) mmol/L Calcium (8.4-10.2) mg/dL Total Bilirubin (0.2-1.3) mg/dL AST (17-59) IU/L ALT (<50) IU/L Alkaline Phosphatase (38-126) U/L Total Creatine Kinase (55-170) U/L CK-MB (CK-2) (<2.37) ng/mL CK-MB (CK-2) Rel Index (1.5-5.0) % Troponin I 0.090 H (0.01-0.034) ng/mL NT-Pro-B Natriuret Pep (<450) pg/mL Total Protein (6.3-8.2) g/dL Albumin (3.5-5.0) g/dL Globulin (1.7-4.1) g/dL Albumin/Globulin Ratio (1.0-2.8) Procalcitonin 0.21 (<0.5) ng/mL SARS-CoV-2 (PCR) (Negative) ECG Data Attestation: I personally reviewed and interpreted this ECG as follows: Interpretation: AFib, incomplete right bundle, nonspecific ST change. Rate of 97 QRS of 94 and QTC of 439. Discharge Plan Departure Patient Disposition: Admitted As Inpatient Clinical Impression: Bilateral pneumonia, Bilateral pleural effusion Admit Date/Time: 11/26/21 18:10 Admit Provider: Sourav Britton <Reanna Dozier DO - Last Filed: 11/27/21 20:05> Cosign ED Attending Ryleyature Attestation: I was immediately available in the department for consultation. Documentation has been reviewed. Agree with assessment and
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
[2021-11-26] MEDS: cefTRIAXone 1,000 MG in SODIUM CHLORIDE 0.9% 100 ML 200 ML IV (18:40)
[2021-11-26] MEDS: AZITHROMYCIN 500 MG in DEXTROSE 5% IN WATER 250 ML IV (20:07)
[2021-11-26] MEDS: DOCUSATE 100 MG CAPSULE PO (21:52)
[2021-11-26] MEDS: GABAPENTIN 300 MG CAPSULE PO (21:52)
[2021-11-26] MEDS: ENOXAPARIN 100 MG/ML SYRINGE SUBCUT (21:52)
[2021-11-26] MEDS: ATORVASTATIN 20 MG TABLET PO (21:52)
[2021-11-26] MEDS: ACETAMINOPHEN 325 MG TABLET 650 MG PO (23:33)
[2021-11-27 04:20] VITALS: BP 112/74; PULSE 82; RESP 18; TEMP 36.7; O2SAT 94
[2021-11-27 05:29] LABS: Add Manual Diff / Slide Review NO; Basophils Absolute Auto 0 /uL (0-100); Basophils Percent Auto 0.6 % (0-2); Eosinophils Absolute Auto 0 /uL (0-450); Eosinophils Percent Auto 0.6 % (2-4); Hematocrit 40.8 % (41-53); Hemoglobin 13.8 g/dL (13.5-17.5); Lymphocytes Absolute Auto 1400 /uL (1100-4500); Lymphocytes Percent Auto 17.1 % (25-40); Mean Corpuscular HGB Conc 33.7 % (30-36); Mean Corpuscular Hemoglobin 31.9 PG (26-34); Mean Corpuscular Volume 94.6 fL (80-100); Monocytes Absolute Auto 800 /uL (0-900); Monocytes Percent Auto 10.2 % (3-14); Neutrophils Absolute Auto 5900 /uL (1500-7000); Neutrophils Percent Auto 71.5 % (50-75); Platelet Count 108 X10^3/uL (150-400); Red Blood Cell Count 4.32 X10^6/uL (4.5-5.9); Red Cell Distribution Width 12.9 % (11.6-14.8); White Blood Cell Count 8.2 X10^3/uL (4.5-11.0)
[2021-11-27 05:36] LABS: INR 1.3 (0.9-1.3); Prothrombin Time 14.7 SECONDS (10.1-12.7)
[2021-11-27 08:00] VITALS: BP 126/82; PULSE 95; RESP 17; TEMP 38.1; O2SAT 94
[2021-11-27] MEDS: hydroCHLOROthiazide 25 MG TABLET 12.5 MG PO (10:28)
[2021-11-27] MEDS: DOCUSATE 100 MG CAPSULE PO (10:28)
[2021-11-27] MEDS: METOPROLOL ER 50 MG TABLET PO (10:30)
[2021-11-27] MEDS: lisinopriL 10 MG TABLET PO (10:30)
[2021-11-27 10:38] VITALS: PULSE 102; RESP 22; O2SAT 93
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
[2021-11-27] MEDS: ENOXAPARIN 100 MG/ML SYRINGE SUBCUT (11:59)
[2021-11-27] MEDS: ACETAMINOPHEN 325 MG TABLET 650 MG PO (12:00)
== END 2021-11-27 13:00 | disposition home or self-care (01) ==
LOC: ED 16:05 → AC 18:20
PROVIDERS: Emergency Medicine; Admitting Provider Internal Medicine; Emergency Provider Physician Assistant; PCP Family Medicine; Referring Provider Physician Assistant; Visit Provider Internal Medicine
DX: J15.9 Unspecified bacterial pneumonia (principal); I48.20 Chronic atrial fibrillation, unspecified; I10 Essential (primary) hypertension; E78.5 Hyperlipidemia, unspecified; Z96.661 Presence of right artificial ankle joint; Z20.822 Contact with and (suspected) exposure to COVID-19; Z87.891 Personal history of nicotine dependence; Z79.01 Long term (current) use of anticoagulants; Z86.711 Personal history of pulmonary embolism
CPT/HCPCS: 36415; 71046; 71275; 80053; 82550; 82553; 83605; 83880; 84145; 84484; 85025; 85610; 87635; 93005; 96365; 96372; 99284; C9803; G0378; J0696; J1650; Q9967

== ENCOUNTER → 2021-11-29 16:46 | Outpatient (ROUT) | payer OTHER, SELFPAY ==
[2021-11-26 19:02] VITALS: BMI 30.6
[2021-11-29 17:09] LABS: INR 1.7 (0.9-1.3); Prothrombin Time 18.8 SECONDS (10.1-12.7)
== END ==
PROVIDERS: PCP Family Medicine; Visit Provider Family Medicine
DX: I48.91 Unspecified atrial fibrillation (principal)
CPT/HCPCS: 85610

== ENCOUNTER → 2021-12-05 10:27 | Outpatient (ROUT) | payer OTHER, SELFPAY ==
[2021-11-26 19:02] VITALS: BMI 30.6
[2021-12-05 11:18] LABS: INR 2.3 (0.9-1.3); Prothrombin Time 26.3 SECONDS (10.1-12.7)
== END ==
PROVIDERS: PCP Family Medicine; Visit Provider Family Medicine
DX: I48.91 Unspecified atrial fibrillation (principal); Z86.72 Personal history of thrombophlebitis; D68.51 Activated protein C resistance
CPT/HCPCS: 85610

== ENCOUNTER → 2021-12-28 10:36 | Outpatient (ROUT) | payer OTHER, SELFPAY ==
[2021-11-26 19:02] VITALS: BMI 30.6
[2021-12-28 10:47] LABS: INR 2.1 (0.9-1.3); Prothrombin Time 23.8 SECONDS (10.1-12.7)
== END ==
PROVIDERS: PCP Family Medicine; Visit Provider Family Medicine
DX: I48.91 Unspecified atrial fibrillation (principal); Z86.72 Personal history of thrombophlebitis; D68.51 Activated protein C resistance
CPT/HCPCS: 85610

== ENCOUNTER → 2022-01-18 11:35 | Outpatient (ROUT) | payer OTHER, SELFPAY ==
[2021-11-26 19:02] VITALS: BMI 30.6
[2022-01-18 12:07] LABS: INR 2.1 (0.9-1.3); Prothrombin Time 23.4 SECONDS (10.1-12.7)
== END ==
PROVIDERS: PCP Family Medicine; Visit Provider Family Medicine
DX: Z86.72 Personal history of thrombophlebitis (principal); I48.91 Unspecified atrial fibrillation; D68.51 Activated protein C resistance
CPT/HCPCS: 85610

== ENCOUNTER → 2022-03-08 13:47 | Outpatient (ROUT) | payer OTHER, SELFPAY ==
[2021-11-26 19:02] VITALS: BMI 30.6
[2022-03-08 14:02] LABS: INR 2.2 (0.9-1.3); Prothrombin Time 24.8 SECONDS (10.1-12.7)
== END ==
PROVIDERS: PCP Family Medicine; Visit Provider Family Medicine
DX: I48.91 Unspecified atrial fibrillation (principal); D68.51 Activated protein C resistance; Z86.72 Personal history of thrombophlebitis
CPT/HCPCS: 85610

== ENCOUNTER → 2022-04-26 08:15 | Outpatient (ROUT) | payer OTHER, SELFPAY ==
[2021-11-26 19:02] VITALS: BMI 30.6
[2022-04-26 08:26] LABS: INR 1.8 (0.9-1.3); Prothrombin Time 19.8 SECONDS (10.1-12.7)
== END ==
PROVIDERS: PCP Family Medicine; Visit Provider Family Medicine
DX: I48.91 Unspecified atrial fibrillation (principal)
CPT/HCPCS: 85610

== ENCOUNTER → 2022-06-09 08:23 | Outpatient (ROUT) | payer OTHER, SELFPAY ==
[2021-11-26 19:02] VITALS: BMI 30.6
[2022-06-09 08:42] LABS: INR 2.2 (0.9-1.3); Prothrombin Time 25.5 SECONDS (10.1-12.7)
== END ==
PROVIDERS: PCP Family Medicine; Visit Provider Family Medicine
DX: Z79.01 Long term (current) use of anticoagulants (principal)
CPT/HCPCS: 85610

== ENCOUNTER → 2022-07-19 08:18 | Outpatient (ROUT) | payer OTHER, SELFPAY ==
[2021-11-26 19:02] VITALS: BMI 30.6
[2022-07-19 08:34] LABS: INR 2.2 (0.9-1.3); Prothrombin Time 25.5 SECONDS (10.1-12.7)
== END ==
PROVIDERS: PCP Family Medicine; Visit Provider Family Medicine
DX: Z79.01 Long term (current) use of anticoagulants (principal)
CPT/HCPCS: 85610

== ENCOUNTER → 2022-09-01 08:21 | Outpatient (ROUT) | payer OTHER, SELFPAY ==
[2021-11-26 19:02] VITALS: BMI 30.6
[2022-09-01 08:35] LABS: INR 1.5 (0.9-1.3); Prothrombin Time 16.9 SECONDS (10.1-12.7)
== END ==
PROVIDERS: PCP Family Medicine; Visit Provider Family Medicine
DX: Z79.01 Long term (current) use of anticoagulants (principal)
CPT/HCPCS: 85610

== ENCOUNTER → 2022-09-22 08:52 | Outpatient (ROUT) | payer OTHER, SELFPAY ==
[2021-11-26 19:02] VITALS: BMI 30.6
[2022-09-22 09:01] LABS: INR 2.5 (0.9-1.3); Prothrombin Time 28.4 SECONDS (10.1-12.7)
== END ==
PROVIDERS: PCP Family Medicine; Visit Provider Family Medicine
DX: Z79.01 Long term (current) use of anticoagulants (principal)
CPT/HCPCS: 85610

== ENCOUNTER → 2022-11-02 08:56 | Outpatient (ROUT) | payer OTHER, SELFPAY ==
[2021-11-26 19:02] VITALS: BMI 30.6
[2022-11-02 09:05] LABS: INR 2.1 (0.9-1.3); Prothrombin Time 24.8 SECONDS (10.1-12.7)
== END ==
PROVIDERS: PCP Family Medicine; Visit Provider Family Medicine
DX: I48.91 Unspecified atrial fibrillation (principal)
CPT/HCPCS: 85610

== ENCOUNTER → 2022-11-09 15:49 | Outpatient (CLI) | payer OTHER, SELFPAY ==
[2021-11-26 19:02] VITALS: BMI 30.6
[2022-11-09 16:56] LABS: Add Manual Diff / Slide Review NO; Basophils Absolute Auto 0 /uL (0-100); Basophils Percent Auto 0.5 % (0-2); Eosinophils Absolute Auto 100 /uL (0-450); Eosinophils Percent Auto 0.8 % (2-4); Hematocrit 42.7 % (41-53); Hemoglobin 14.8 g/dL (13.5-17.5); Lymphocytes Absolute Auto 1700 /uL (1100-4500); Lymphocytes Percent Auto 23.8 % (25-40); Mean Corpuscular HGB Conc 34.7 % (30-36); Mean Corpuscular Hemoglobin 32.3 PG (26-34); Mean Corpuscular Volume 93.1 fL (80-100); Monocytes Absolute Auto 600 /uL (0-900); Monocytes Percent Auto 8.3 % (3-14); Neutrophils Absolute Auto 4700 /uL (1500-7000); Neutrophils Percent Auto 66.6 % (50-75); Platelet Count 173 X10^3/uL (150-400); Red Blood Cell Count 4.59 X10^6/uL (4.5-5.9)
[2022-11-09 17:25] LABS: Alanine Aminotransferase 25 IU/L (<50); Albumin 4.2 g/dL (3.5-5.0); Albumin Globulin Ratio 1.4 (1.0-2.8); Alkaline Phosphatase 79 U/L (38-126); Aspartate Aminotransferase 26 IU/L (17-59); BUN Creatinine Ratio 14.3 (6-22); Bilirubin Total 0.5 mg/dL (0.2-1.3); Blood Urea Nitrogen 13 mg/dL (9-20); Calcium 9.5 mg/dL (8.4-10.2); Carbon Dioxide 30 mmol/L (22-32); Chloride 101 mmol/L (98-107); Estimated Glomerular Filt Rate > 60 mL/min (>60); Glucose 94 mg/dL (80-110); HEMOLYSIS < 15 (0-50); Potassium 4.5 mmol/L (3.4-5.1); Sodium 137 mmol/L (137-145); Total Protein 7.2 g/dL (6.3-8.2); Uric Acid 4.8 mg/dL (3.5-8.5)
[2022-11-09 17:30] LABS: High Sensitivity CRP - Cardiac 3.2 mg/L (1.0-3.0)
[2022-11-09 17:36] LABS: Rheumatoid Factor < 8.6 IU/mL (<12.0)
[2022-11-09 17:43] LABS: Erythrocyte Sedimentation Rate 4 MM/HR (0-15)
[2022-11-09 18:27] LABS: Thyroid Stimulating Hormone 1.89 uIU/mL (0.47-4.68)
[2022-11-11 18:10] LABS: SS A Ro Sjogrens Antibody < 0.2 AI (0.0-0.9); SS B La Sjogrens Antibody < 0.2 AI (0.0-0.9)
[2022-11-14 15:42] LABS: ANA Screen, IFA Negative (.)
[2022-11-20 18:29] LABS: HLA B27 Negative (.)
== END ==
PROVIDERS: PCP Family Medicine; Referring Provider Ophthalmology; Visit Provider Ophthalmology
DX: M35.00 Sjogren syndrome, unspecified (principal); H20.022 Recurrent acute iridocyclitis, left eye
CPT/HCPCS: 36415; 80053; 81374; 84443; 84550; 85025; 85651; 86038; 86140; 86235; 86430

== ENCOUNTER → 2022-12-07 14:35 | Outpatient (ROUT) | payer OTHER, SELFPAY ==
[2021-11-26 19:02] VITALS: BMI 30.6
[2022-12-07 14:49] LABS: INR 2.3 (0.9-1.3); Prothrombin Time 26.4 SECONDS (10.1-12.7)
== END ==
PROVIDERS: PCP Family Medicine; Visit Provider Family Medicine
DX: Z79.01 Long term (current) use of anticoagulants (principal)
CPT/HCPCS: 85610

== ENCOUNTER → 2023-01-25 08:39 | Outpatient (ROUT) | payer OTHER, SELFPAY ==
[2021-11-26 19:02] VITALS: BMI 30.6
[2023-01-25 08:55] LABS: INR 1.9 (0.9-1.3); Prothrombin Time 21.7 SECONDS (10.1-12.7)
== END ==
PROVIDERS: PCP Family Medicine; Visit Provider Family Medicine
DX: Z79.01 Long term (current) use of anticoagulants (principal)
CPT/HCPCS: 85610

== ENCOUNTER → 2023-03-01 08:25 | Outpatient (ROUT) | payer OTHER, SELFPAY ==
[2021-11-26 19:02] VITALS: BMI 30.6
[2023-03-01 08:34] LABS: INR 2.2 (0.9-1.3)
== END ==
PROVIDERS: PCP Family Medicine; Visit Provider Family Medicine
DX: Z79.01 Long term (current) use of anticoagulants (principal)
CPT/HCPCS: 85610

== ENCOUNTER → 2023-04-09 08:20 | Outpatient (ROUT) | payer OTHER, SELFPAY ==
[2021-11-26 19:02] VITALS: BMI 30.6
[2023-04-09 08:28] LABS: INR 2.4 (0.9-1.3); Prothrombin Time 27.8 SECONDS (10.1-12.7)
== END ==
PROVIDERS: PCP Family Medicine; Visit Provider Family Medicine
DX: Z79.01 Long term (current) use of anticoagulants (principal)
CPT/HCPCS: 85610

== ENCOUNTER → 2023-04-24 08:06 | Outpatient (CLI) | payer OTHER, SELFPAY ==
[2021-11-26 19:02] VITALS: BMI 30.6
[2023-04-24 09:02] LABS: Add Manual Diff / Slide Review NO; Basophils Absolute Auto 0 /uL (0-100); Basophils Percent Auto 0.7 % (0-2); Eosinophils Absolute Auto 0 /uL (0-450); Eosinophils Percent Auto 0.9 % (2-4); Hematocrit 43.2 % (41-53); Hemoglobin 15.1 g/dL (13.5-17.5); Lymphocytes Absolute Auto 1600 /uL (1100-4500); Lymphocytes Percent Auto 28.4 % (25-40); Mean Corpuscular Hemoglobin 32.4 PG (26-34); Mean Corpuscular Volume 92.5 fL (80-100); Monocytes Absolute Auto 500 /uL (0-900); Monocytes Percent Auto 8.5 % (3-14); Neutrophils Absolute Auto 3400 /uL (1500-7000); Neutrophils Percent Auto 61.5 % (50-75); Platelet Count 175 X10^3/uL (150-400); Red Blood Cell Count 4.67 X10^6/uL (4.5-5.9); Red Cell Distribution Width 13.2 % (11.6-14.8); White Blood Cell Count 5.5 X10^3/uL (4.5-11.0)
[2023-04-24 10:11] LABS: BUN Creatinine Ratio 13.9 (6-22); Blood Urea Nitrogen 14 mg/dL (9-20); Calcium 9.4 mg/dL (8.4-10.2); Carbon Dioxide 28 mmol/L (22-32); Chloride 102 mmol/L (98-107); Cholesterol 161 mg/dL (140-199); Estimated Glomerular Filt Rate > 60 mL/min (>60); Glucose 136 mg/dL (80-110); HDL Cholesterol 60 mg/dL (40-60); HEMOLYSIS < 15 (0-50); LDL Cholesterol Calculated 72 mg/dL (<100); Sodium 136 mmol/L (137-145); Triglycerides 147 mg/dL (35-150)
== END ==
PROVIDERS: PCP Family Medicine; Referring Provider Internal Medicine Cardiovascular Disease; Visit Provider Internal Medicine Cardiovascular Disease
DX: I10 Essential (primary) hypertension (principal); E78.5 Hyperlipidemia, unspecified
CPT/HCPCS: 36415; 80048; 80061; 85025

== ENCOUNTER → 2023-06-05 12:31 | Outpatient (ROUT) | payer OTHER, SELFPAY ==
[2021-11-26 19:02] VITALS: BMI 30.6
== END ==
PROVIDERS: PCP Family Medicine; Visit Provider Family Medicine
DX: I48.11 Longstanding persistent atrial fibrillation (principal)
CPT/HCPCS: 85610

== ENCOUNTER → 2023-07-24 08:38 | Outpatient (ROUT) | payer OTHER, SELFPAY ==
[2021-11-26 19:02] VITALS: BMI 30.6
[2023-07-24 09:24] LABS: INR 2.9 (0.9-1.3); Prothrombin Time 33.2 SECONDS (10.1-12.7)
== END ==
PROVIDERS: PCP Family Medicine; Visit Provider Family Medicine
DX: I48.11 Longstanding persistent atrial fibrillation (principal)
CPT/HCPCS: 85610

== ENCOUNTER → 2023-08-15 08:52 | Outpatient (ROUT) | payer OTHER, SELFPAY ==
[2021-11-26 19:02] VITALS: BMI 30.6
[2023-08-15 09:02] LABS: INR 1.9 (0.9-1.3); Prothrombin Time 22.1 SECONDS (9.4-12.5)
== END ==
PROVIDERS: PCP Family Medicine; Visit Provider Family Medicine
DX: I48.11 Longstanding persistent atrial fibrillation (principal)
CPT/HCPCS: 85610

== ENCOUNTER → 2023-10-04 10:29 | Outpatient (ROUT) | payer OTHER, SELFPAY ==
[2021-11-26 19:02] VITALS: BMI 30.6
[2023-10-04 10:41] LABS: Prothrombin Time 23.4 SECONDS (9.4-12.5)
== END ==
PROVIDERS: PCP Family Medicine; Visit Provider Family Medicine
DX: I48.11 Longstanding persistent atrial fibrillation (principal)
CPT/HCPCS: 85610

== ENCOUNTER → 2023-11-08 09:08 | Outpatient (ROUT) | payer OTHER, SELFPAY ==
[2021-11-26 19:02] VITALS: BMI 30.6
[2023-11-08 09:23] LABS: Prothrombin Time 34.3 SECONDS (9.4-12.5)
== END ==
PROVIDERS: PCP Family Medicine; Visit Provider Family Medicine
DX: I48.11 Longstanding persistent atrial fibrillation (principal)
CPT/HCPCS: 85610

== ENCOUNTER → 2024-02-08 08:28 | Outpatient (ROUT) | payer OTHER, SELFPAY ==
[2021-11-26 19:02] VITALS: BMI 30.6
[2024-02-08 08:45] LABS: INR 2.7 (0.9-1.3); Prothrombin Time 30.9 SECONDS (9.4-12.5)
== END ==
PROVIDERS: PCP Family Medicine; Visit Provider Family Medicine
DX: I48.11 Longstanding persistent atrial fibrillation (principal); Z79.01 Long term (current) use of anticoagulants
CPT/HCPCS: 85610

== ENCOUNTER → 2024-03-21 08:35 | Outpatient (ROUT) | payer OTHER, SELFPAY ==
[2021-11-26 19:02] VITALS: BMI 30.6
[2024-03-21 08:49] LABS: INR 2.2 (0.9-1.3); Prothrombin Time 25.1 SECONDS (9.4-12.5)
== END ==
PROVIDERS: PCP Family Medicine; Visit Provider Family Medicine
DX: I48.11 Longstanding persistent atrial fibrillation (principal); Z79.01 Long term (current) use of anticoagulants
CPT/HCPCS: 85610

== ENCOUNTER → 2024-04-25 08:43 | Outpatient (ROUT) | payer OTHER, SELFPAY ==
[2021-11-26 19:02] VITALS: BMI 30.6
[2024-04-25 08:59] LABS: Prothrombin Time 23.4 SECONDS (9.4-12.5)
== END ==
PROVIDERS: PCP Family Medicine; Visit Provider Family Medicine
DX: I48.11 Longstanding persistent atrial fibrillation (principal); Z79.01 Long term (current) use of anticoagulants
CPT/HCPCS: 85610

== ENCOUNTER → 2024-07-18 08:16 | Outpatient (ROUT) | payer OTHER, SELFPAY ==
[2021-11-26 19:02] VITALS: BMI 30.6
[2024-07-18 08:25] LABS: INR 2.2 (0.9-1.3); Prothrombin Time 25.4 SECONDS (9.4-12.5)
== END ==
PROVIDERS: PCP Family Medicine; Visit Provider Family Medicine
DX: Z79.01 Long term (current) use of anticoagulants (principal); I48.11 Longstanding persistent atrial fibrillation
CPT/HCPCS: 85610

== ENCOUNTER → 2024-08-29 09:03 | Outpatient (ROUT) | payer OTHER, SELFPAY ==
[2021-11-26 19:02] VITALS: BMI 30.6
[2024-08-29 09:11] LABS: INR 2.5 (0.9-1.3); Prothrombin Time 27.5 SECONDS (9.4-12.5)
== END ==
PROVIDERS: PCP Family Medicine; Visit Provider Family Medicine
DX: I48.11 Longstanding persistent atrial fibrillation (principal); Z79.01 Long term (current) use of anticoagulants
CPT/HCPCS: 85610

== ENCOUNTER → 2024-10-07 08:30 | Outpatient (ROUT) | payer OTHER, SELFPAY ==
[2021-11-26 19:02] VITALS: BMI 30.6
[2024-10-07 08:47] LABS: Prothrombin Time 22.2 SECONDS (9.4-12.5)
== END ==
PROVIDERS: PCP Family Medicine; Visit Provider Family Medicine
DX: I48.11 Longstanding persistent atrial fibrillation (principal); Z79.01 Long term (current) use of anticoagulants
CPT/HCPCS: 85610

== ENCOUNTER → 2024-12-03 09:17 | Outpatient (ROUT) | payer OTHER, SELFPAY ==
[2021-11-26 19:02] VITALS: BMI 30.6
[2024-12-03 09:34] LABS: INR 2.1 (0.9-1.3); Prothrombin Time 23.9 SECONDS (9.4-12.5)
== END ==
PROVIDERS: PCP Family Medicine; Visit Provider Family Medicine
DX: I48.11 Longstanding persistent atrial fibrillation (principal)
CPT/HCPCS: 85610

== ENCOUNTER → 2025-01-23 08:22 | Outpatient (ROUT) | payer OTHER, SELFPAY ==
[2021-11-26 19:02] VITALS: BMI 30.6
[2025-01-23 08:34] LABS: INR 2.1 (0.9-1.3); Prothrombin Time 23.1 SECONDS (9.4-12.5)
== END ==
LOC: LAB 08:23
PROVIDERS: PCP Family Medicine; Visit Provider Family Medicine
DX: I48.11 Longstanding persistent atrial fibrillation (principal)
CPT/HCPCS: 85610

== ENCOUNTER → 2025-03-26 08:17 | Outpatient (ROUT) | payer OTHER, SELFPAY ==
[2021-11-26 19:02] VITALS: BMI 30.6
[2025-03-26 08:24] LABS: INR 3.4 (0.9-1.3); Prothrombin Time 36.9 SECONDS (9.4-12.5)
== END ==
PROVIDERS: PCP Family Medicine; Visit Provider Family Medicine
DX: I48.11 Longstanding persistent atrial fibrillation (principal)
CPT/HCPCS: 85610

== ENCOUNTER → 2025-04-29 08:23 | Outpatient (ROUT) | payer OTHER, SELFPAY ==
[2021-11-26 19:02] VITALS: BMI 30.6
[2025-04-29 08:42] LABS: INR 3.0 (0.9-1.3); Prothrombin Time 33.5 SECONDS (9.4-12.5)
== END ==
PROVIDERS: PCP Family Medicine; Visit Provider Family Medicine
DX: I48.11 Longstanding persistent atrial fibrillation (principal)
CPT/HCPCS: 85610

== ENCOUNTER → 2025-06-05 09:15 | Outpatient (ROUT) | payer OTHER, SELFPAY ==
[2021-11-26 19:02] VITALS: BMI 30.6
[2025-06-05 09:21] LABS: INR 2.5 (0.9-1.3); Prothrombin Time 27.9 SECONDS (9.4-12.5)
== END ==
PROVIDERS: PCP Family Medicine; Visit Provider Family Medicine
DX: I48.11 Longstanding persistent atrial fibrillation (principal)
CPT/HCPCS: 85610

== ENCOUNTER → 2025-06-24 13:14 | Outpatient (CLI) | payer OTHER, SELFPAY ==
[2021-11-26 19:02] VITALS: BMI 30.6
--- NOTE | 2025-06-24 | DI.US.S_ITS ---
PROCEDURE: US CAROTID DOPPLER BI INDICATIONS: Dizziness TECHNIQUE: Color and pulse Doppler interrogation was performed of both carotid systems, with image documentation and velocity measurements. COMPARISON: None. FINDINGS: Stenosis calculations are based on SRU (Society of Radi[employer] in Ultras[employer]) criteria. Right side: Common carotid artery peak systolic velocity: 51 cm/sec. Internal carotid artery peak systolic velocity: 64 cm/sec. Internal carotid artery end diastolic velocity: 15 cm/sec. External carotid artery peak systolic velocity: 75 cm/sec. ICA/CCA peak systolic ratio: 1.3 . Cook scale imaging description: Mild atherosclerotic plaque at the carotid bulb Percent internal carotid artery stenosis: Less than 50% . Vertebral artery: Flow direction is antegrade. Left side: Common carotid artery peak systolic velocity: 81 cm/sec. Internal carotid artery peak systolic velocity: 109 cm/sec. Internal carotid artery end diastolic velocity: 30 cm/sec. External carotid artery peak systolic velocity: 80 cm/sec. ICA/CCA peak systolic ratio: 1.3 . Cook scale imaging description: Mild plaque at the carotid bulb Percent internal carotid artery stenosis: Less than 50% . Vertebral artery: Flow direction is antegrade. IMPRESSION: 1. In the right carotid artery, there is less than 50% stenosis based on peak systolic velocity criteria. 2. In the left carotid artery, there is less than 50% stenosis based on peak systolic velocity criteria. 3. Antegrade vertebral arteries. Dictated by: Augusto Hall M.D. on 06/24/2025 at 16:03 Approved by: Augusto Hall M.D. on 06/24/2025 at 16:18
== END ==
LOC: US 13:15
PROVIDERS: PCP Family Medicine; Referring Provider Family Medicine; Visit Provider Family Medicine
DX: I65.23 Occlusion and stenosis of bilateral carotid arteries (principal); R42 Dizziness and giddiness
CPT/HCPCS: 93880

== ENCOUNTER → 2025-07-16 09:20 | Outpatient (ROUT) | payer OTHER, SELFPAY ==
[2021-11-26 19:02] VITALS: BMI 30.6
[2025-07-16 09:26] LABS: INR 2.5 (0.9-1.3); Prothrombin Time 27.6 SECONDS (9.4-12.5)
== END ==
PROVIDERS: PCP Family Medicine; Visit Provider Family Medicine
DX: I48.11 Longstanding persistent atrial fibrillation (principal)
CPT/HCPCS: 85610

== ENCOUNTER → 2025-09-23 08:14 | Outpatient (ROUT) | payer OTHER, SELFPAY ==
[2025-09-16 10:08] VITALS: BMI 30.6
[2025-09-23 08:27] LABS: INR 2.4 (0.9-1.3); Prothrombin Time 26.5 SECONDS (9.4-12.5)
== END ==
PROVIDERS: PCP Family Medicine; Visit Provider Family Medicine
DX: I48.11 Longstanding persistent atrial fibrillation (principal)
CPT/HCPCS: 85610